=== PATIENT | female | born 1940 | race Caucasian/White ===

== ENCOUNTER 2024-01-17 11:00 | Observation (INO) | payer OTHER ==
[2024-01-17 13:37] LABS: BASO % 0.4 % (0-2.0); EOS % 2.6 % (0-4.5); HEMATOCRIT 41.8 % (32.4-45.2); HEMOGLOBIN 13.3 GM/dL (10.7-15.3); LYMPH % 20.3 % (8-40); MCH 29.5 pg (25.7-33.7); MCHC 31.8 g/dl (32.0-36.0); MEAN CELL VOLUME 92.9 fl (80-96); MEAN PLT VOLUME 10.4 fl (7.5-11.1); NEUT % 68.7 % (42.8-82.8); PLATELET COUNT 201 10^3/uL (134-434); RDW 14.9 % (11.6-15.6); WHITE BLOOD COUNT 10.6 K/mm3 (4.0-10.0)
[2024-01-17 14:09] LABS: POTASSIUM 4.8 mmol/L (3.5-5.1)
[2024-01-17 14:11] LABS: BLOOD UREA NITROGEN 42.7 mg/dL (7-18); CALCIUM 9.5 mg/dL (8.5-10.1)
[2024-01-17 14:12] LABS: ALBUMIN 4.1 g/dl (3.4-5.0); MAGNESIUM 2.2 mg/dL (1.8-2.4)
[2024-01-17 14:14] LABS: CREATININE 1.8 mg/dL (0.55-1.3); PHOSPHOROUS 2.4 mg/dL (2.5-4.9)
[2024-01-17 14:16] LABS: BILIRUBIN,TOTAL 0.6 mg/dL (0.2-1)
[2024-01-17] MEDS: SODIUM CHLORIDE 1,000 ML IV STA (16:13)
[2024-01-17] MEDS ORDERED: LOSARTAN POTASSIUM 50 MG TABLET ONE (18:34)
[2024-01-17] MEDS: DEXTROSE 5%-LACTATED RINGERS 1,000 ML IV SCH (18:42)
[2024-01-17] MEDS: LOSARTAN POTASSIUM 50 MG TABLET PO SCH (18:43)
[2024-01-17 20:22] VITALS: BMI 23.1
[2024-01-17] MEDS: INSULIN ASPART SLIDING SCALE (NOVOLOG) 1 VIAL SQ SCH (21:30)
[2024-01-17] MEDS: INSULIN (LEVEMIR) 100 UNITS/ML UNITS SQ SCH (21:34)
[2024-01-18 08:55] LABS: POTASSIUM 4.2 mmol/L (3.5-5.1)
[2024-01-18 08:59] LABS: HEMATOCRIT 40.5 % (32.4-45.2); HEMOGLOBIN 13.1 GM/dL (10.7-15.3); MCH 29.7 pg (25.7-33.7); MCHC 32.3 g/dl (32.0-36.0); MEAN CELL VOLUME 92.2 fl (80-96); MEAN PLT VOLUME 11.1 fl (7.5-11.1); PLATELET COUNT 193 10^3/uL (134-434); RDW 14.2 % (11.6-15.6)
[2024-01-18] MEDS: LACTATED RINGERS SOLUTION 1,000 ML/1,000 ML INFUS.BAG IV SCH ×2 (09:34→21:28)
[2024-01-18] MEDS: ENOXAPARIN NA (PORCINE) 30 MG/0.3 ML DISP.SYRIN SQ SCH (09:36)
[2024-01-18 09:57] LABS: ALBUMIN 3.7 g/dl (3.4-5.0); BLOOD UREA NITROGEN 33.8 mg/dL (7-18); CALCIUM 9.4 mg/dL (8.5-10.1)
[2024-01-18 10:00] LABS: CREATININE 1.6 mg/dL (0.55-1.3)
[2024-01-18] MEDS ORDERED: LACTATED RINGERS SOLUTION 1,000 ML/1,000 ML INFUS.BAG IV SCH (10:00)
[2024-01-18] MEDS ORDERED: ATENOLOL 25 MG TABLET (FP) PO SCH (10:00)
[2024-01-18 10:01] LABS: TOT PROT 7.3 g/dl (6.4-8.2)
[2024-01-18 10:46] LABS: BILIRUBIN,TOTAL 0.7 mg/dL (0.2-1)
[2024-01-18 21:55] VITALS: RESP 18
[2024-01-19 09:04] LABS: BASO % 0.6 % (0-2.0); EOS % 9.9 % (0-4.5); HEMATOCRIT 35.1 % (32.4-45.2); HEMOGLOBIN 11.5 GM/dL (10.7-15.3); LYMPH % 33.9 % (8-40); MCH 30.1 pg (25.7-33.7); MCHC 32.7 g/dl (32.0-36.0); MEAN CELL VOLUME 92.1 fl (80-96); MEAN PLT VOLUME 10.6 fl (7.5-11.1); MONO % 12.7 % (3.8-10.2); NEUT % 42.9 % (42.8-82.8); PLATELET COUNT 169 10^3/uL (134-434); RBC 3.82 M/mm3 (3.60-5.2); RDW 14.2 % (11.6-15.6); WHITE BLOOD COUNT 7.8 K/mm3 (4.0-10.0)
[2024-01-19 09:30] LABS: POTASSIUM 4.1 mmol/L (3.5-5.1)
[2024-01-19 09:33] LABS: CALCIUM 8.8 mg/dL (8.5-10.1)
[2024-01-19 09:34] LABS: BLOOD UREA NITROGEN 24.2 mg/dL (7-18)
[2024-01-19 09:37] LABS: CREATININE 1.3 mg/dL (0.55-1.3)
[2024-01-19 09:39] LABS: BILIRUBIN,TOTAL 0.6 mg/dL (0.2-1)
[2024-01-19 14:54] VITALS: BP 135/68; PULSE 72; TEMP 98.2
== END 2024-01-19 15:11 | disposition home or self-care (01) ==
LOC: JER 11:00 → JERBED 17:02 → J8W 20:00
PROVIDERS: ADMIT Internal Medicine; ATTEND Registered Nurse
PROC: 3E0337Z Introduction of Electrolytic and Water Balance Substance into Peripheral Vein, Percutaneous Approach (ICD-10-PCS; principal; 2024-01-17)
PROC: 3E023GC Introduction of Other Therapeutic Substance into Muscle, Percutaneous Approach (ICD-10-PCS; 2024-01-17)
PROC: 3E013VG Introduction of Insulin into Subcutaneous Tissue, Percutaneous Approach (ICD-10-PCS; 2024-01-17)
DX: N17.9 Acute kidney failure, unspecified (principal); E11.9 Type 2 diabetes mellitus without complications; I10 Essential (primary) hypertension; E78.5 Hyperlipidemia, unspecified; R19.7 Diarrhea, unspecified; R63.30 Feeding difficulties, unspecified
CPT/HCPCS: 36415; 76775-TC; 80053; 82962; 83690; 83735; 84100; 85025; 85027; 87045; 87046; 87205; 93005; 93010; 96360; 96361; 96372; 99285-25; G0378